=== PATIENT | female | born 1955 | race Caucasian/White ===

== ENCOUNTER → 2018-02-15 | Outpatient (CLI) | payer BC ==
[~2018-02-15] MED LIST: ACET-789 PO; ATEN25TA PO; CALC-823 PO; CHLO4TAB PO; CHOL10003 PO; ESTR0.9T PO; HYDR-3454 PO; L.AC1CAP6 PO; LEVO88TA2 PO; POTA99TA21 PO; PROLAMINE IODINE; UBID100C17 PO; [UNRECOGNIZED DRUG - CODE] PO; [UNRECOGNIZED DRUG - OTHER]; [UNRECOGNIZED DRUG - OTHER] PO; [UNRECOGNIZED DRUG - OTHER] PO
[2018-02-15 09:58] LABS: HEMOGLOBIN 13.4 G/DL (11.5-16.0); MEAN PLATELET VOLUME 9.5 FL (7.4-10.4); RED BLOOD COUNT 4.17 10^6/uL (4.35-5.85); RED CELL DISTRIBUTION WIDTH 14.2 % (10.0-14.5); WHITE BLOOD COUNT 6.9 10^3/uL (4.3-11.0)
[2018-02-15 10:19] LABS: ALANINE AMINOTRANSFERASE 18 U/L (0-55); ALBUMIN 4.3 GM/DL (3.2-4.5); ALKALINE PHOSPHATASE 36 U/L (40-136); BILIRUBIN,TOTAL 0.5 MG/DL (0.1-1.0); BUN/CREATININE RATIO 13; CALCIUM 9.4 MG/DL (8.5-10.1); CARBON DIOXIDE 29 MMOL/L (21-32); CHLORIDE 104 MMOL/L (98-107); CREATININE SERUM 0.88 MG/DL (0.60-1.30); GFR ESTIMATED > 60; GLUCOSE 88 MG/DL (70-105); POTASSIUM 3.9 MMOL/L (3.6-5.0); SODIUM 140 MMOL/L (135-145); TOTAL PROTEIN 6.8 GM/DL (6.4-8.2)
--- NOTE | 2018-02-15 11:57 | Diagnostic Imaging Report ---
INDICATION: Chest pain. COMPARISON: None. FINDINGS: Two views of the chest are obtained. Heart size is normal. The pulmonary vessels appear unremarkable. There is no pneumothorax, mediastinal widening or pleural fluid. The lungs are clear. The osseous structures appear unremarkable. IMPRESSION: Negative chest. Dictated by: Dictated on workstation # [id number]
[2018-02-16 13:31] LABS: FREE T4 (FREE THYROXINE) < 0.40 NG/DL (0.70-1.48)
== END ==
LOC: LAB 09:35
PROVIDERS: ATTEND Internal Medicine
DX: R07.9 Chest pain, unspecified (principal); E03.9 Hypothyroidism, unspecified; R00.0 Tachycardia, unspecified
CPT/HCPCS: 36415; 71046; 80053; 83880; 84436; 84439; 84443; 84480; 84484; 85027; 85379; 85652

== ENCOUNTER → 2020-11-20 | Outpatient (CLI) | payer OTHER, BC ==
[~2020-11-20] MED LIST changes: -HYDR-3454 PO; +HYDR-3455 PO
== END ==
LOC: GIR 18:02
PROVIDERS: ATTEND Nurse Practitioner Family
DX: Z01.89 Encounter for other specified special examinations (principal)
CPT/HCPCS: 83605; 84132

== ENCOUNTER → 2020-11-21 | Outpatient (CLI) | payer OTHER | LOC: GIR 16:19 | PROVIDERS: ATTEND Internal Medicine | DX: Z01.89 Encounter for other specified special examinations (principal) | CPT/HCPCS: 84132 ==

== ENCOUNTER → 2020-11-22 | Outpatient (CLI) | payer OTHER, BC | LOC: GIR 07:45 | PROVIDERS: ATTEND Internal Medicine | DX: Z01.89 Encounter for other specified special examinations (principal) | CPT/HCPCS: 84132 ==

== ENCOUNTER → 2020-11-23 | Outpatient (CLI) | payer OTHER | LOC: LABNPT 06:35 | PROVIDERS: ATTEND Nurse Practitioner Family | DX: Z01.89 Encounter for other specified special examinations (principal) | CPT/HCPCS: 84132 ==

== ENCOUNTER → 2020-11-26 | Outpatient (CLI) | payer BC, OTHER | LOC: GIR 15:50 | PROVIDERS: ATTEND Internal Medicine | DX: Z01.89 Encounter for other specified special examinations (principal) | CPT/HCPCS: 84145 ==

== ENCOUNTER → 2020-11-29 | Outpatient (CLI) | payer BC, OTHER | LOC: GIR 16:17 | PROVIDERS: ATTEND Internal Medicine | DX: Z01.89 Encounter for other specified special examinations (principal) | CPT/HCPCS: 84145 ==

== ENCOUNTER → 2020-12-03 | Outpatient (CLI) | payer OTHER, MEDICARE | LOC: GIR 17:18 | PROVIDERS: ATTEND Internal Medicine | DX: Z01.89 Encounter for other specified special examinations (principal) | CPT/HCPCS: 84145 ==

== ENCOUNTER 2020-12-04 11:29 | Outpatient (CLI) | payer MEDICARE, OTHER ==
[~2020-12-04] VITALS: Ht 162.6 cm; Wt 55.5 kg
[2020-12-04 12:00] VITALS: BP 100/70
--- NOTE | 2020-12-04 13:35 | Diagnostic Imaging Report ---
INDICATION: confirm picc placement. TECHNIQUE: Single view chest 1:23 PM. CORRELATION STUDY: None FINDINGS: Left upper extremity central has been placed, tip projecting over the expected location of the low SVC. The heart size, mediastinal configuration and pulmonary vascularity are within normal limits. The lungs are clear with no consolidating infiltrate. There is no significant effusion or pneumothorax. IMPRESSION: 1. Left upper extremity central line has been placed. The tip is projecting over the expected location of the low SVC. Dictated by: Dictated on workstation # [id number]
== END 2020-12-04 13:45 | disposition home or self-care (01) ==
LOC: SDC 11:29
PROVIDERS: ATTEND Internal Medicine
DX: Z45.2 Encounter for adjustment and management of vascular access device (principal)
CPT/HCPCS: 36569; 71045; 76937; C1751

== ENCOUNTER 2021-01-18 11:14 | Outpatient (RCR) | payer MEDICARE, OTHER | END 2021-03-04 12:00 | disposition home or self-care (01) | PROVIDERS: ATTEND Internal Medicine | DX: M62.81 Muscle weakness (generalized) (principal) ==

== ENCOUNTER 2021-10-24 01:20 | Outpatient (RCR) | payer MEDICARE ==
[~2021-10-24 01:20] MED LIST changes: -POTA99TA21 PO; +POTA99TA26 PO
== END 2021-11-01 | disposition home or self-care (01) ==
LOC: LAB 01:20 → EDSTATUS 10-26 07:14
PROVIDERS: ATTEND Nurse Practitioner Family
DX: K92.1 Melena (principal); R19.7 Diarrhea, unspecified; Z86.19 Personal history of other infectious and parasitic diseases
CPT/HCPCS: 82274; 87015; 87045; 87046; 87324; 87328; 87329; 87449; 87899